=== PATIENT | female | born 1960 | race African-American/Black ===

== ENCOUNTER 2022-07-12 20:19 | Emergency (ER) | payer BC, OTHER ==
[~2022-07-12] VITALS: Ht 167.6 cm; Wt 107.7 kg
[2022-07-12] MEDS ORDERED: MECLIZINE 25MG TABLET PO ONE (21:15)
[2022-07-12 21:30] LABS: BASOPHILS % 0.5 % (0.0-2.0); EOSINOPHILS % 1.1 % (0.0-5.0); HEMATOCRIT. 38.3 % (36.0-48.0); HEMOGLOBIN. 12.9 g/dL (12.0-16.0); LYMPHOCYTES % 16.6 % (20.0-50.0); MEAN CORPUSCULAR HEMOGLOBIN 31.8 pg (28.0-32.0); MEAN CORPUSCULAR VOLUME 94.5 fL (81.0-99.0); MEAN PLATELET VOLUME 7.9 fl (7.4-10.4); MONOCYTES % 4.2 % (2.0-8.0); NEUTROPHILS % 77.6 % (40.0-76.0); PLATELET 229 x1000/uL (130-400); RED BLOOD CELL COUNT 4.06 mill/uL (4.2-5.4); RED CELL DISTRIBUTION WIDTH 14.8 % (11.6-14.6)
[2022-07-12] MEDS ORDERED: MECLIZINE 12.5MG TABLET PO NR (21:30)
[2022-07-12 21:36] LABS: CHLORIDE 108 mEq/L (98-107)
[2022-07-13] MEDS ORDERED: MECL-159 MT (01:18)
[2022-07-13] MEDS ORDERED: DIAZEPAM 5 MG/ML 2ML CPJ IM ONE (02:45)
[2022-07-13] MEDS ORDERED: AMLO2.5T45 MT (02:58)
[2022-07-13 03:16] VITALS: BP 166/88
== END 2022-07-13 03:22 | disposition home or self-care (01) ==
LOC: ER 20:19
DX: H81.399 Other peripheral vertigo, unspecified ear (principal)
CPT/HCPCS: 36415; 70450; 80053; 82962; 85025; 93005; 99284; J3360; J8597